=== PATIENT | female | born 1950 | race Caucasian/White ===

== ENCOUNTER → 2017-11-23 | Outpatient (CLI) | payer MEDICARE, OTHER | LOC: RADMRIMAIN 12:41 | PROVIDERS: ATTEND Otolaryngology | DX: H93.3X9 Disorders of unspecified acoustic nerve (principal); H91.90 Unspecified hearing loss, unspecified ear; Z53.9 Procedure and treatment not carried out, unspecified reason ==

== ENCOUNTER → 2018-04-19 | Outpatient (CLI) | payer MEDICARE, OTHER ==
[2018-04-19 13:45] VITALS: BP 185/102; PULSE 75; TEMP 98.2; BMI 26.2
--- NOTE | 2018-04-19 14:35 | P.HPOB ---
History of Present Illness H&P Date: 04/19/18 Chief Complaint: The patient is here for her routine gynecologic exam. This is a 68-year-old with an LMP of 1996 with status post LAVH with BSO for benign reasons. The patient is here to reestablish with this office. It is been more than 4 years since her last appointment here. [place] [facility] [place] was about 11 months ago per the patient. The patient states she is been feeling right breast soreness for about 2 months. And about 2 1/2 weeks ago she noticed a lump in that same area. The lump is felt in the outer upper quadrant of the right breast near the axilla. She states also looks slightly bruised in this area. She states the lump is about the size of the tip of her finger. She has been doing more strenuous activity such as pulling carpets and wonders if her symptoms are related to this activity. She has also been having issues with stress urinary incontinence. She has seen Dr. Rivero, the urologist, for this in the past but has not seen him recently. She has not felt any bulging outside of the vaginal opening. She does have a history of a cystocele. Review of Systems The patient's weight has been stable. She denies respiratory, cardiac and G.I. problems. She denies maltreatment or problems with falling. : she has been having urinary leakage at times with coughing, bending or even standing. See the HPI. 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 She underwent L AVH with BSO for abnormal bleeding. She used HRT for 14 years and this was discontinued in 2008. History of Any Multi-Drug Resistant Organisms: None Reported Past Surgical History: Breast Surgery (Right breast biopsy), Hysterectomy (L AVH with BSO in 1996), Tubal Ligation Additional Past Surgical History / Comment(s): Facial cosmetic surgery. Colonoscopy 2011. Past Psychological History: Anxiety Smoking Status: Never smoker Past Alcohol Use History: Daily (2 per day) Past Drug Use History: None Reported Additional History: The patient has been a since 2011 and is not sexually active. She is retired. - Past Family History Mother Family Medical History: Myocardial Infarction ([place]) Additional Family Medical History / Comment(s): Maternal aunt had breast cancer. Nephew had colon cancer. Father Family Medical History: Cancer (Cancer of the esophagus) Medications and Allergies Home Medications Medication Instructions Recorded Confirmed Type ALPRAZolam [Xanax] PO HS 04/19/18 History Amitriptyline HCl [Elavil] PO TID 04/19/18 History Atenolol [Tenormin] PO DAILY 04/19/18 History Atorvastatin [Lipitor] PO HS 04/19/18 History Calcium Carbonate/Vitamin D3 PO DAILY 04/19/18 History [Calcium 600-Vit D3 200 Tablet] HYDROcodone/APAP 7.5-325MG [[place] PO BID 04/19/18 History 7.5-325] Omeprazole PO HS 04/19/18 History Potassium Chloride [Klor-Con 8] PO BID 04/19/18 History glipiZIDE [Glucotrol] PO DAILY 04/19/18 History metFORMIN HCL [Glucophage] PO DAILY 04/19/18 History Allergies Allergy/AdvReac Type Severity Reaction Status Date / Time Sulfa (Sulfonamide AdvReac Mild Nausea Unverified 04/19/18 13:41 Antibiotics) Exam Vital Signs Temp Pulse BP 04/19/18 13:42 98.2 F 75 185/102 Intake and Output 04/18/18 04/19/18 04/19/18 22:59 06:59 14:59 Other: Weight 69.4 kg Height 5'4", weight 153 pounds, BMI 26.3. This is a well-developed well-nourished white female who is alert and oriented times 3 in no acute distress. HEENT: Within normal limits. NECK: Supple without mass or thyromegaly. CHEST AND LUNGS: Clear to auscultation. HEART: Regular rate and rhythm. BREASTS: there is a slightly erythematous area at the 10 o'clock position of the right breast. This corresponds with the area of soreness and small lump felt by the patient. It is very slightly dimpled in that same area. There is a small lump palpable measuring approximately 0.5 x 1.0 cm. It is minimally tender. The right nipple is not inverted. The left nipple is inverted and she states that has been this way throughout her life. There are no palpable left breast masses. AXILLARY EXAM: Negative for adenopathy. BACK: Negative for CVA tenderness. ABDOMEN: Soft, nontender, without palpable masses. PELVIC EXAM: External genitalia appears normal with mild to moderate atrophy. Vagina appears normal with mild to moderate atrophy. At rest there is no evidence of prolapse. With Valsalva there is a grade 2 cystocele. There is mild urethral mobility was coughing, but no urinary leakage was demonstrated. The vaginal cuff is well supported. Bimanual examination is negative for mass or tenderness. RECTAL EXAM: Rectovaginal exam is negative for mass or tenderness and is negative for occult blood. A grade 1-2 rectocele is noted with rectal exam. EXTREMITIES: Nontender. IMPRESSION: 1. 68-year-old menopausal female status post LAVH and BSO for benign reasons. 2. Small right breast lump and soreness noted by the patient with symptoms starting about 2 months ago. The patient is fairly nodular breast tissue. Differential diagnosis will include prominent normal breast tissue, breast cyst , and less likely breast neoplasm. 3. Stress urinary incontinence with grade 2 cystocele. This cystocele is stable from previous 2014 exam. PLAN: 1. Pap smears have been discontinued. 2. Self breast awareness was discussed with the patient. 3. Diagnostic mammogram with the right breast ultrasound will be done today. Marker was placed in the area of her symptoms. 4. The patient will follow-up with her urologist regarding the stress urinary incontinence. 5. She plans on getting the flu shot in the near future. 6. I recommended that she return in one year and annually for her routine gynecologic exam.
--- NOTE | 2018-04-21 11:00 | MM ---
Reason for exam: clinical finding. Last mammogram was performed 9 months ago. History: Patient is postmenopausal and is nulliparous. Family history of breast cancer in maternal aunt at age 50 and breast cancer in paternal aunt at age 60. Benign stereotactic core biopsy of the right breast. 2 benign excisional biopsies of the right breast. Indicated problem(s): lump or thickening in the right breast. Physical Findings: Nurse Summary: 0.5 x 1cm nodule in the right breast at 10 o'clock (Dr. Reagan). MG 3D Diag Mammo W/Cad ZACH Bilateral CC and MLO view(s) were taken. XCCL view(s) were taken of the right breast. Prior study comparison: July 28, 2017, mammogram, performed at [facility]. May 20, 2016, mammogram, performed at [facility]. The breast tissue is heterogeneously dense. This may lower the sensitivity of mammography. Finding #1: There is a questionable 16 mm obscured oval mass in the inner quadrant, middle position of the left breast on CC slice (31/). Finding #2: There are typically benign vascular, dystrophic, round calcifications in both breasts. Stable distortion right upper outer quadrant, known excisional biopsy. These results were verbally communicated with the patient and result sheet given to the patient on 04/21/18. ASSESSMENT: Incomplete: need additional imaging evaluation, BI-RAD 0 RECOMMENDATION: Ultrasound of the left breast.
--- NOTE | 2018-04-21 11:02 | USB ---
Reason for exam: clinical finding. History: Patient is postmenopausal and is nulliparous. Family history of breast cancer in maternal aunt at age 50 and breast cancer in paternal aunt at age 60. Benign stereotactic core biopsy of the right breast. 2 benign excisional biopsies of the right breast. Indicated problem(s): lump or thickening in the right breast. US Breast RT Right complete breast ultrasound includes all four quadrants, the retroareolar region and axilla. Finding demonstrates dense tissue throughout, nothing seen at BB. These results were verbally communicated with the patient and result sheet given to the patient on 04/21/18. ASSESSMENT: Negative, BI-RAD 1 RECOMMENDATION: Ultrasound. (left breast)
== END | disposition home or self-care (01) ==
LOC: WWCWWP 13:11
PROVIDERS: ATTEND Obstetrics & Gynecology
DX: N64.4 Mastodynia (principal); N63.11 Unspecified lump in the right breast, upper outer quadrant
CPT/HCPCS: 77066; 76641; G0279; 77062

== ENCOUNTER → 2018-04-25 | Outpatient (CLI) | payer MEDICARE, OTHER ==
--- NOTE | 2018-04-25 14:19 | USB ---
Reason for exam: additional evaluation requested from abnormal screening. History: Patient is postmenopausal and is nulliparous. Family history of breast cancer in maternal aunt at age 50 and breast cancer in paternal aunt at age 60. Benign stereotactic core biopsy of the right breast. 2 benign excisional biopsies of the right breast. US Breast Workup LT Left complete breast ultrasound includes all four quadrants, the retroareolar region and axilla. Finding demonstrates no cystic or solid lesion seen. These results were verbally communicated with the patient and result sheet given to the patient on 04/25/18. ASSESSMENT: Negative, BI-RAD 1 RECOMMENDATION: Routine screening mammogram of both breasts in 1 year.
== END | disposition home or self-care (01) ==
LOC: RADUSWWP 10:07
PROVIDERS: ATTEND Obstetrics & Gynecology
DX: R92.8 Other abnormal and inconclusive findings on diagnostic imaging of breast (principal)

== ENCOUNTER → 2019-06-20 | Outpatient (CLI) | payer MEDICARE, OTHER ==
[2019-06-20 10:04] VITALS: BP 183/75; PULSE 69; RESP 18; TEMP 98.3
--- NOTE | 2019-06-20 10:59 | P.HPOB ---
History of Present Illness H&P Date: 06/20/19 Chief Complaint: The patient is here for her routine well woman exam and mnaisha mogram. This is a 69-year-old with an LMP of 1996. She is status post LAVH with BSO for benign reasons. The patient is without gynecologic complaints. She has been undergoing workup for epigastric type pains and has had a abdominal CT scan and upper endoscopy recently. She is refusing a pelvic examination today, but states she will have this done next year. She does want a breast exam. Review of Systems Her weight has been stable over the past year. She denies respiratory or cardiac problems. GI: She has had some difficulty swallowing and has been undergoing a workup for this including upper endoscopy. She denies maltreatment or problems with falling. : She continues to have some urinary leakage with coughing and sneezing. Last month she saw her urologist Dr. Rivero. Past Medical History Past Medical History: Diabetes Mellitus, GERD/Reflux, Hyperlipidemia, Hypertension, Osteoarthritis (OA) Additional Past Medical History / Comment(s): Type 2 diabetes with neuropathy. 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 She underwent LAVH with BSO for abnormal bleeding. She used HRT for 14 years and this was discontinued in 2008. History of Any Multi-Drug Resistant Organisms: None Reported Past Surgical History: Breast Surgery, Hysterectomy, Tubal Ligation Additional Past Surgical History / Comment(s): LAVH with BSO in 1996. Facial cosmetic surgery. Cystoscopy 2019. Colonoscopy with upper endoscopy 2019(next colonoscpy 5yrs) Past Psychological History: Anxiety Smoking Status: Never smoker Past Alcohol Use History: Daily (2 per Day) Past Drug Use History: None Reported Additional History: The patient has been a since 2011 and is not sexually active. She is retired. - Past Family History Mother Family Medical History: Myocardial Infarction ([place]) Additional Family Medical History / Comment(s): Maternal aunt had breast cancer. Nephew had colon cancer. Father Family Medical History: Cancer Additional Family Medical History / Comment(s): Cancer of the esophagus. Medications and Allergies Home Medications Medication Instructions Recorded Confirmed Type ALPRAZolam [Xanax] 0.25 mg PO HS 04/19/18 04/19/18 History Amitriptyline HCl [Elavil] 25 mg PO TID 04/19/18 04/19/18 History Atenolol [Tenormin] 50 mg PO DAILY 04/19/18 04/19/18 History Atorvastatin [Lipitor] 40 mg PO HS 04/19/18 04/19/18 History Calcium Carbonate/Vitamin D3 600 mg PO DAILY 04/19/18 04/19/18 History [Calcium 600-Vit D3 200 Tablet] Cranberry Fruit Concentrate 450 mg PO DAILY 04/19/18 04/19/18 History [Cranberry] Ginkgo Biloba [place] Extract [Ginkgo] 120 mg PO DAILY 04/19/18 04/19/18 History Omega3/Dha/Epa/Fish Oil/Vit D3 1,200 mg PO DAILY 04/19/18 04/19/18 History [Fish Oil-Vit D3 Softgel] Omeprazole 40 mg PO HS 04/19/18 04/19/18 History glipiZIDE [Glucotrol] 10 mg PO DAILY 04/19/18 04/19/18 History metFORMIN HCL [Glucophage] 500 mg PO DAILY 04/19/18 04/19/18 History Cognium 1 tablet PO DAILY 06/20/19 06/20/19 History Cyanocobalamin (Vitamin B-12) 5,000 mcg PO DAILY 06/20/19 06/20/19 History [Vitamin B-12] Multivit-Min/FA/Lycopen/Lutein 1 each PO DAILY 06/20/19 06/20/19 History [Centrum Silver Tablet] Nasal [place] 3 sprays EA NOSTRIL TID 06/20/19 06/20/19 History Allergies Allergy/AdvReac Type Severity Reaction Status Date / Time Sulfa (Sulfonamide AdvReac Mild Nausea Unverified 06/20/19 10:04 Antibiotics) amoxicillin AdvReac Rash/Hives Unverified 06/20/19 10:04 Exam Vital Signs Temp Pulse Resp BP Pulse Ox 06/20/19 09:57 98.3 F 69 18 183/75 96 Intake and Output 06/19/19 06/20/19 06/20/19 22:59 06:59 14:59 Other: Weight 68.946 kg Height 5 feet 4 inches, weight 152 pounds, BMI 26.1. This is a well-developed well-nourished white female who is alert and oriented times 3 in no acute distress. HEENT: Within normal limits. NECK: Supple without mass or thyromegaly. CHEST AND LUNGS: Clear to auscultation. HEART: Regular rate and rhythm. BREASTS: Are without mass or discharge. The left breast has an inverted nipple and she states it is been this way for many years. The right nipple is not inverted. There is a slight indentation at the 9 o'clock position of the right breast consistent with her previous breast biopsy. AXILLARY EXAM: Negative for adenopathy. BACK: Negative for CVA tenderness. ABDOMEN: Soft, nontender, without palpable masses. PELVIC EXAM: Refused by the patient. RECTAL EXAM: Refused by the patient. EXTREMITIES: Nontender. IMPRESSION: 1. 69-year-old menopausal female status post LAVH with BSO with normal breast exam. Pelvic examination was refused by the patient. She states she will do this next year. 2. History of grade 2 cystocele. Pelvic exam refused by the patient today, therefore unable to assess changes in the cystocele. PLAN: 1. Pap smears have been discontinued. 2. Self breast awareness was discussed with the patient. 3. Screening mammogram will be done today. 4. Osteoporosis prevention was discussed. I have stressed the importance of adequate calcium, vitamin D and regular exercise. Recommended amounts of calcium and vitamin D were also discussed. She states it has been more than 5 years since her last bone density test which she states was normal. I have recommended repeating bone density testing. She states she would like to do this next year when she returns. She did get a flu shot during the past fall. 5. She was advised to return in one year for her annual well woman exam.
--- NOTE | 2019-06-21 14:10 | MM ---
Reason for exam: screening (asymptomatic). Last mammogram was performed 1 year and 2 months ago. History: Patient is postmenopausal and is nulliparous. Family history of breast cancer in maternal aunt at age 50 and breast cancer in paternal aunt at age 60. Benign stereotactic core biopsy of the right breast. 2 benign excisional biopsies of the right breast. Physical Findings: A clinical breast exam by your physician is recommended on an annual basis and results should be correlated with mammographic findings. MG 3D Screening Mammo W/Cad Bilateral CC and MLO view(s) were taken. Prior study comparison: April 19, 2018, bilateral MG 3d diag mammo w/cad ZACH. July 28, 2017, mammogram, performed at [facility]. The breast tissue is heterogeneously dense. This may lower the sensitivity of mammography. Stable post surgical scar lateral right breast. Area of asymmetric density medially left breast stable to slightly more pronounced from 04/19/18 and not clearly seen on older priors. ASSESSMENT: Incomplete: need additional imaging evaluation, BI-RAD 0 RECOMMENDATION: Special view mammogram of the left breast. If lesion persists on supplemental views, image directed ultrasound is recommended. [facility] will attempt to contact patient to return for supplemental views and ultrasound if indicated.
== END | disposition home or self-care (01) ==
LOC: WWCWWP 09:47
PROVIDERS: ATTEND Obstetrics & Gynecology
DX: Z12.31 Encounter for screening mammogram for malignant neoplasm of breast (principal)
CPT/HCPCS: 77063; 77067

== ENCOUNTER → 2019-07-04 | Outpatient (CLI) | payer MEDICARE, OTHER ==
--- NOTE | 2019-07-04 11:07 | MM ---
Reason for exam: additional evaluation requested from abnormal screening. Last mammogram was performed less than 1 month ago. History: Patient is postmenopausal and is nulliparous. Family history of breast cancer in maternal aunt at age 50 and breast cancer in paternal aunt at age 60. Benign stereotactic core biopsy of the right breast. 2 benign excisional biopsies of the right breast. Took estrogen for 10 years beginning at age 46. Physical Findings: Nurse did not find any significant physical abnormalities on exam. MG 3D Work Up W/Cad LT Spot compression CC, spot compression MLO, and ML view(s) were taken of the left breast. Prior study comparison: June 20, 2019, bilateral MG 3d screening mammo w/cad. April 19, 2018, bilateral MG 3d diag mammo w/cad ZACH. The breast tissue is heterogeneously dense. This may lower the sensitivity of mammography. There is no discrete abnormality. No distinct new lesion. These results were verbally communicated with the patient and result sheet given to the patient on 07/04/19. ASSESSMENT: Negative, BI-RAD 1 RECOMMENDATION: Return to routine screening mammogram schedule for both breasts.
== END ==
LOC: RADMAMWWP 10:00
PROVIDERS: ATTEND Obstetrics & Gynecology
DX: R92.8 Other abnormal and inconclusive findings on diagnostic imaging of breast (principal)
CPT/HCPCS: 77065; G0279; 77061

== ENCOUNTER → 2020-07-23 | Outpatient (CLI) | payer MEDICARE, OTHER ==
[2020-07-23 11:44] VITALS: BP 165/83; PULSE 69; RESP 18; TEMP 98.3
--- NOTE | 2020-07-23 12:26 | P.HPOB ---
History of Present Illness H&P Date: 07/23/20 Chief Complaint: The patient is here for her routine gynecologic exam. This is a 70-year-old with an LMP of 1996. She is status post LAVH with BSO for benign reasons. The patient is without gynecologic complaints. She has not noticed any prolapse from the vagina. Review of Systems She is gained 2 pounds over the past year. She denies respiratory or cardiac problems. GI: Occasional loose stools with certain foods. She denies maltreatm ent or problems with falling. : Occasional urinary leakage if she does not get to the bathroom in time that requires her to wear a pad. Past Medical History Past Medical History: Diabetes Mellitus, GERD/Reflux, Hyperlipidemia, Hypertension, Osteoarthritis (OA) Additional Past Medical History / Comment(s): Type 2 diabetes with neuropathy. 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 She has a known grade 2 cystocele and grade 1-2 rectocele. She used HRT for 14 years and this was discontinued in 2008. History of Any Multi-Drug Resistant Organisms: None Reported Past Surgical History: Breast Surgery, Hysterectomy, Tubal Ligation Additional Past Surgical History / Comment(s): LAVH with BSO in 1996. Facial cosmetic surgery. Cystoscopy 2018. Colonoscopy with upper endoscopy 2020(next colonoscpy 5yrs) Past Psychological History: Anxiety Smoking Status: Former smoker Past Alcohol Use History: Daily (2 glasses of wine per day) Past Drug Use History: None Reported Additional History: The patient has been a since 2011 and is not sexually active. She is retired. - Past Family History Mother Family Medical History: Myocardial Infarction ([place]) Additional Family Medical History / Comment(s): Maternal aunt had breast cancer. Nephew had colon cancer. Father Family Medical History: Cancer Additional Family Medical History / Comment(s): Cancer of the esophagus. Medications and Allergies Home Medications Medication Instructions Recorded Confirmed Type ALPRAZolam [Xanax] 0.25 mg PO HS 04/19/18 07/23/20 History Amitriptyline HCl [Elavil] 25 mg PO TID 04/19/18 07/23/20 History Atorvastatin [Lipitor] 40 mg PO HS 04/19/18 07/23/20 History Calcium Carbonate/Vitamin D3 600 mg PO DAILY 04/19/18 07/23/20 History [Calcium 600-Vit D3 200 Tablet] Cranberry Fruit Concentrate 450 mg PO DAILY 04/19/18 07/23/20 History [Cranberry] Ginkgo Biloba [place] Extract [Ginkgo] 120 mg PO DAILY 04/19/18 07/23/20 History Omega3/Dha/Epa/Fish Oil/Vit D3 1,200 mg PO DAILY 04/19/18 07/23/20 History [Fish Oil-Vit D3 Softgel] Omeprazole 40 mg PO HS 04/19/18 07/23/20 History atenoloL [Tenormin] 100 mg PO DAILY 04/19/18 07/23/20 History glipiZIDE [Glucotrol] 2.5 mg PO DAILY 04/19/18 07/23/20 History metFORMIN HCL [Glucophage] 500 mg PO BID 04/19/18 07/23/20 History Cognium 1 tablet PO DAILY 06/20/19 07/23/20 History Cyanocobalamin (Vitamin B-12) 5,000 mcg PO DAILY 06/20/19 07/23/20 History [Vitamin B-12] Multivit-Min/FA/Lycopen/Lutein 1 each PO DAILY 06/20/19 07/23/20 History [Centrum Silver Tablet] Nasal [place] 3 sprays EA NOSTRIL TID 06/20/19 07/23/20 History Aspirin 81 mg PO DAILY 07/23/20 07/23/20 History Allergies Allergy/AdvReac Type Severity Reaction Status Date / Time Sulfa (Sulfonamide AdvReac Mild Nausea Unverified 07/23/20 11:37 Antibiotics) amoxicillin AdvReac Rash/Hives Unverified 07/23/20 11:37 Exam Vital Signs Temp Pulse Resp BP Pulse Ox 07/23/20 11:38 98.3 F 69 18 165/83 97 Intake and Output 07/22/20 07/23/20 07/23/20 22:59 06:59 14:59 Other: Weight 69.853 kg Height 5 feet 3 inches, weight 154 pounds, BMI 27.3. This is a well-developed well-nourished white female who is alert and oriented times 3 in no acute distress. HEENT: Within normal limits. NECK: Supple without mass or thyromegaly. CHEST AND LUNGS: Clear to auscultation. HEART: Regular rate and rhythm. BREASTS: Are without mass or discharge. The left nipple is inverted and has been this way for many years according to the patient. AXILLARY EXAM: Negative for adenopathy. BACK: Negative for CVA tenderness. ABDOMEN: Soft, nontender, without palpable masses. PELVIC EXAM: External genitalia appears normal with mild to moderate atrophy. Vagina appears normal with mild to moderate atrophy. There is a stable grade 2 cystocele and grade 1 rectocele. The vaginal cuff is well supported. Bimanual examination is negative for mass or tenderness. RECTAL EXAM: Rectovaginal exam is negative for mass or tenderness and is negative for occult blood. EXTREMITIES: Nontender. IMPRESSION: 1. 70-year-old menopausal female status post LAVH with BSO for benign reasons with stable grade 2 cystocele and grade 1 rectocele. PLAN: 1. Pap smears have been discontinued. 2. Self breast awareness was discussed with the patient. 3. Screening mammogram is scheduled for 09/17/2020 and the order slip was given to the patient for this. 4. Osteoporosis prevention was discussed. I have stressed the importance of adequate calcium, vitamin D and regular exercise. Recommended amounts of calcium and vitamin D were also discussed. Bone density testing will be done today. 5. She did get a flu shot last fall and has received the first of 2 COVID vaccinations. 6. She was advised to return in one year for her annual well woman exam.
--- NOTE | 2020-07-23 13:41 | BD ---
EXAMINATION TYPE: Axial Bone Density DATE OF EXAM: 07/23/2020 COMPARISON: NONE CLINICAL HISTORY: Height: 5 FT 3 IN Weight: 154 FRAX RISK QUESTIONS: Alcohol (3 or more units per day): NO Family History (Parent hip fracture): NO Glucocorticoids (More than 3mos): NO (Ex: prednisone, prednisolone, methylprednisolone, dexamethasone, and hydrocortisone). History of Fracture in Adulthood: NO Secondary Osteoporosis: NO 1. Type 1 Diabetes: NO 2. Hyperthyroidism: NO 3. Menopause before 45: NO 4. Malnutrition: NO 5. Chronic liver disease: NO Rheumatoid Arthritis: NO Current Tobacco Use: NO RISK FACTORS HISTORY OF: Family History of Osteoporosis: YES Active: NO Diet low in dairy products/other sources of calcium: NO Postmenopausal woman: HYST AGE 46 Take estrogen and/or progesterone medications: TOOK HRT FROM AGE [age] Lost more than 2 inches in height since high school: NO MEDICATIONS: Additional Medications: ATENOLOL, LIPITOR, ELAVIL, OMEPRAZOLE, XANAX, METFORMIN, GLIPIZIDE, Additional History: EXAM MEASUREMENTS: Bone mineral densitometry was performed using the [employer]. Bone mineral density as measured about the Lumbar spine is: ----- L1-L4(G/cm2): 1.587 T Score Values are as follows: ----- L2: 3.2 ----- L3: 4.1 ----- L4: 3.2 ----- L1-L4: 3.4 BASELINE Bone mineral density about the R hip (g/cm2): 1.062 Bone mineral density about the L hip (g/cm2): 1.101 T Score values are as follows: -----R Neck: 0.2 -----L Neck: 0.5 -----R Total: 1.0 -----L Total: 1.2 BASELINE IMPRESSION: Normal (Values between +1 and -1 indicate normal bone mass). Consider repeating this study in 5 year s or sooner if there is some new clinical indication. NOTE: T-SCORE=SD OF THE YOUNG ADULT MEAN.
--- NOTE | 2020-07-23 14:30 | P.PN ---
Progress Note - Text Progress Note Date: 07/23/20 OUTPATIENT FOLLOW-UP NOTE TEST(S)/RESULTS: Bone density test done on 07/23/2020 was normal. METHOD OF NOTIFICATION: She was notified by phone. PATIENT COMMENTS: Her last bone density test was done at [facility] more than 5 years ago. DIAGNOSIS: Normal bone density test. DISCUSSION: She will continue to try to get enough calcium, vitamin D and regular exercise. PLAN: She was advised to return in one year for her annual well woman exam. We will repeat the bone density test in approximately 6 years.
== END | disposition home or self-care (01) ==
LOC: WWCWWP 11:17
PROVIDERS: ATTEND Obstetrics & Gynecology
DX: Z78.0 Asymptomatic menopausal state (principal)
CPT/HCPCS: 77080

== ENCOUNTER → 2021-10-29 | Outpatient (CLI) | payer MEDICARE, OTHER ==
[2021-10-29 10:48] VITALS: PULSE 76; RESP 17; TEMP 98.7
--- NOTE | 2021-10-29 12:04 | P.HPOB ---
History of Present Illness H&P Date: 10/29/21 Chief Complaint: The patient is here for her routine gynecologic exam. This is a 71-year-old with an LMP of 1996. The patient is status post LAVH and BSO for benign reasons. The patient has been experiencing worsening urinary incontinence especially with coughing and sneezing. She even notices leakage when changing positions. The leakage tends to be immediate and without urinary urgency. She has a known cystocele and small rectocele. She recently had a screening mammogram on 10/23/2021 which was benign. This was done at [facility]. She had mentioned to the mammogram tech that she has noticed a lump in the right axilla. Even though the mammogram was benign, a right axillary ultrasound was recommended. They called the patient and said they would be calling her back to schedule the ultrasound. Review of Systems Weight has been stable. She denies respiratory or cardiac problems. GI: She occasionally has some difficulty swallowing he has had a workup for this including upper GI. She was told she may have a hiatal hernia. Past Medical History Past Medical History: Cancer, Diabetes Mellitus, GERD/Reflux, Hyperlipidemia, Hypertension, Osteoarthritis (OA) Additional Past Medical History / Comment(s): Type 2 diabetes with neuropathy. Basal cell skin cancer on her nose. 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 She has a known grade 2 cystocele and grade 1-2 rectocele. She used HRT for 14 years and this was discontinued in 2008. History of Any Multi-Drug Resistant Organisms: None Reported Past Surgical History: Breast Surgery, Hysterectomy, Tubal Ligation Additional Past Surgical History / Comment(s): LAVH with BSO in 1996. Facial cosmetic surgery. Basal cell skin cancer removed 2021. Cystoscopy 2018. Colonoscopy with upper endoscopy 2020(next colonoscpy 5yrs) Past Psychological History: Anxiety Smoking Status: Former smoker Past Alcohol Use History: Daily (2 glasses of wine per day.) Past Drug Use History: None Reported Additional History: She has been a since 2011 and is not sexually active. She is retired. - Past Family History Mother Family Medical History: Myocardial Infarction (VT) Additional Family Medical History / Comment(s): Maternal aunt had breast cancer. Nephew had colon cancer. Father Family Medical History: Cancer Additional Family Medical History / Comment(s): Cancer of the esophagus. Sister(s) Family Medical History: Osteoarthritis (OA) Medications and Allergies Home Medications Medication Instructions Recorded Confirmed Type ALPRAZolam [Xanax] 0.25 mg PO HS 04/19/18 10/29/21 History Amitriptyline HCl [Elavil] 25 mg PO TID 04/19/18 10/29/21 History Atorvastatin [Lipitor] 40 mg PO HS 04/19/18 10/29/21 History Calcium Carbonate/Vitamin D3 600 mg PO DAILY 04/19/18 10/29/21 History [Calcium 600-Vit D3 200 Tablet] Cranberry Fruit Concentrate 450 mg PO DAILY 04/19/18 10/29/21 History [Cranberry] Omega3/Dha/Epa/Fish Oil/Vit D3 1,200 mg PO DAILY 04/19/18 10/29/21 History [Fish Oil-Vit D3 Softgel] Omeprazole 40 mg PO HS 04/19/18 10/29/21 History atenoloL [Tenormin] 100 mg PO DAILY 04/19/18 10/29/21 History glipiZIDE [Glucotrol] 2.5 mg PO DAILY 04/19/18 10/29/21 History metFORMIN HCL [Glucophage] 500 mg PO BID 04/19/18 10/29/21 History Cognium 1 tablet PO DAILY 06/20/19 10/29/21 History Cyanocobalamin (Vitamin B-12) 5,000 mcg PO DAILY 06/20/19 10/29/21 History [Vitamin B-12] Multivit-Min/FA/Lycopen/Lutein 1 each PO DAILY 06/20/19 10/29/21 History [Centrum Silver Tablet] Nasal [place] 3 sprays EA NOSTRIL TID 06/20/19 10/29/21 History Aspirin 81 mg PO DAILY 07/23/20 10/29/21 History Biotin [Biotin Disolve] 5,000 mcg PO DAILY 10/29/21 10/29/21 History Vitamin E 400 unit PO DAILY 10/29/21 10/29/21 History Allergies Allergy/AdvReac Type Severity Reaction Status Date / Time Sulfa (Sulfonamide AdvReac Mild Nausea Unverified 10/29/21 10:43 Antibiotics) amoxicillin AdvReac Rash/Hives Unverified 10/29/21 10:43 Exam Vital Signs Temp Pulse Resp Pulse Ox 10/29/21 10:43 98.7 F 76 17 96 Intake and Output 10/28/21 10/29/21 10/29/21 22:59 06:59 14:59 Other: Weight 69.853 kg Height 5 feet 4 inches, weight 154 pounds, BMI 26.4. This is a well-developed well-nourished white female who is alert and oriented times 3 in no acute distress. HEENT: Within normal limits. NECK: Supple without mass or thyromegaly. CHEST AND LUNGS: Clear to auscultation. HEART: Regular rate and rhythm. BREASTS: Are without mass or discharge. The left nipple is inverted and this is not a jacket changer many years. AXILLARY EXAM: There is a slight bulge in the right axilla just posterior to the mid axillary line. There is a palpable 2 x 1.3 cm soft tissue mass consistent with a lipoma. BACK: Negative for CVA tenderness. ABDOMEN: Soft, nontender, without palpable masses. PELVIC EXAM: External genitalia appears normal with moderate atrophy. Urinary leakage occurred upon having the patient sit up and move on the table. Vagina appears normal with mild to moderate atrophy. There is a stable grade 2 cystocele and grade 1 rectocele. The cystocele increases slightly in size with cough and Valsalva. There seems to be mild urethral mobility. Bimanual examination is negative for mass or tenderness. RECTAL EXAM: Rectovaginal exam is negative for mass or tenderness and is negative for occult blood. Vaginal muscle and sphincter tone seem decreased. EXTREMITIES: Nontender. IMPRESSION: 1. 71-year-old menopausal female status post LAVH with BSO for benign reasons with grade 2 cystocele and worsening stress urinary incontinence. 2. Right axillary soft tissue mass measuring impression a 2 x 1.3 cm. Probable lipoma. PLAN: 1. Pap smears have been discontinued. 2. Self breast awareness was discussed with the patient. We have also discussed symptoms associated with inflammatory breast cancer. 3. Screening mammogram was done on 10/23/2021 and this was benign. Right axillary ultrasound was recommended because of the axillary finding. The patient will schedule this with the [facility]. 4. We've discussed the option of referral for her urinary incontinence. She would like to have a referral to Dr. Narvaez, the gynecologic urologist working out of hospital. This referral will be made. 5. She has completed her Covid vaccination series. 6. She was advised to return in one year for her annual well woman exam.
== END ==
LOC: WWCWWP 10:23
PROVIDERS: ATTEND Obstetrics & Gynecology
DX: Z01.419 Encounter for gynecological examination (general) (routine) without abnormal findings (principal); N81.10 Cystocele, unspecified; N39.3 Stress incontinence (female) (male); R22.2 Localized swelling, mass and lump, trunk; E11.40 Type 2 diabetes mellitus with diabetic neuropathy, unspecified; E78.5 Hyperlipidemia, unspecified; I10 Essential (primary) hypertension; Z78.0 Asymptomatic menopausal state; M19.90 Unspecified osteoarthritis, unspecified site; F41.9 Anxiety disorder, unspecified; Z87.891 Personal history of nicotine dependence; Z79.84 Long term (current) use of oral hypoglycemic drugs; Z88.0 Allergy status to penicillin; Z88.2 Allergy status to sulfonamides; Z90.722 Acquired absence of ovaries, bilateral

== ENCOUNTER 2022-10-29 22:15 | Inpatient (IN) | payer MEDICARE, OTHER ==
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
[2022-10-30 00:45] LABS: Basophils % (A) 1 %; Eosinophils # (A) 0.2 k/uL (0-0.7); Eosinophils % (A) 5 %; HCT 40.2 % (34.0-46.0); HGB 13.6 gm/dL (11.4-16.0); Lymphocytes % (A) 25 %; MCH 32.9 pg (25.0-35.0); MCHC 33.9 g/dL (31.0-37.0); Mean Platelet Volume 7.4; Monocytes # (A) 0.2 k/uL (0-1.0); Monocytes % (A) 6 %; Neutrophils # (A) 2.3 k/uL (1.3-7.7); Neutrophils % (A) 60 %; Platelet Count 165 k/uL (150-450); RBC 4.15 m/uL (3.80-5.40); RDW 12.1 % (11.5-15.5); WBC 3.8 k/uL (3.8-10.6)
[2022-10-30 00:52] LABS: ALT 34 U/L (4-34); AST 40 U/L (14-36); African American GFR (CKD) >90 (>60 ml/min/1.73 sqM); Albumin 4.1 g/dL (3.5-5.0); Alkaline Phosphatase 60 U/L (38-126); Anion Gap 17 mmol/L; Blood Urea Nitrogen 7 mg/dL (7-17); Calcium 8.2 mg/dL (8.4-10.2); Carbon Dioxide 22 mmol/L (22-30); Chloride 100 mmol/L (98-107); Glucose 57 mg/dL (74-99); Non-African American GFR(CKD) >90 (>60 ml/min/1.73 sqM); Potassium 3.7 mmol/L (3.5-5.1); Sodium 139 mmol/L (137-145); Total Bilirubin 0.6 mg/dL (0.2-1.3); Total Protein 6.8 g/dL (6.3-8.2)
[2022-10-30 01:01] LABS: Partial Thromboplastin Time 25.2 sec (22.0-30.0); Prothrombin Time 10.4 sec (9.0-12.0)
--- NOTE | 2022-10-30 02:34 | XR ---
EXAM: XR Chest, 2 Views CLINICAL HISTORY: Its. reason XR Reason: difficulty breathing TECHNIQUE: Frontal and lateral views of the chest. COMPARISON: No relevant prior studies available. FINDINGS: Lungs: Right middle lobe pneumonia. Pleural space: Unremarkable. No pneumothorax. Heart: Unremarkable. No cardiomegaly. Mediastinum: Unremarkable. Bones/joints: Unremarkable. IMPRESSION: As above
[2022-10-30] MEDS ORDERED: IPRATROPIUM-ALBUTEROL 3 ML NEB INHALATION STA (02:48)
[2022-10-30] MEDS ORDERED: PNEUMONIA PROTOCOL UTILIZED 1 EACH MISC PO PRN (02:59)
[2022-10-30] MEDS ORDERED: AZITHROMYCIN 500 MG in SODIUM CHLORIDE 0.9% 250 ML IVPB STA (02:59)
[2022-10-30 03:11] LABS: Glucose,Whole Blood 64 mg/dL (70-110)
[2022-10-30] MEDS: IPRATROPIUM-ALBUTEROL 3 ML NEB INHALATION SCH ×6 (03:59→23:27)
[2022-10-30] MEDS: SODIUM CHLORIDE 0.9% 1,000 ML IV SCH ×3 (03:59→20:27)
[2022-10-30 04:00] LABS: Glucose,Whole Blood 96 mg/dL (70-110)
[2022-10-30] MEDS ORDERED: ALPRAZolam 0.25 MG TAB PO PRN (11:44)
[2022-10-30] MEDS ORDERED: AZITHROMYCIN 500 MG TAB PO SCH (13:15)
--- NOTE | 2022-10-30 13:15 | P.HPIM ---
History of Present Illness 72-year-old female came in with comments of shortness of breath cough which is nonproductive. Patient had a chest x-ray which was read as a right middle lobe pneumonia although this infiltrate was not clearly evident for me on the x-ray. has significant bilateral rhonchi. Patient denied any history of COPD but does have some emphysematous changes on the x-ray did do have smoking history, presently not a smoker. Patient was given Rocephin and azithromycin. REVIEW OF SYSTEMS: CONSTITUTIONAL: No fever, no malaise, no fatigue. HEENT: No recent visual problems or hearing problems. Denied any sore throat. CARDIOVASCULAR: No chest pain, orthopnea, PND, no palpitations, no syncope. PULMONARY: As mentioned in HPI GASTROINTESTINAL: No diarrhea, no nausea, no vomiting, no abdominal pain. NEUROLOGICAL: No headaches, no weakness, no numbness. HEMATOLOGICAL: Denies any bleeding or petechiae. GENITOURINARY: Denies any burning micturition, frequency, or urgency. MUSCULOSKELETAL/RHEUMATOLOGICAL: Denies any joint pain, swelling, or any muscle pain. ENDOCRINE: Denies any polyuria or polydipsia. The rest of the 14-point review of systems is negative. PHYSICAL EXAMINATION: GENERAL: The patient is alert and oriented x3, not in any acute distress. Well developed, well nourished. HEENT: Pupils are round and equally reacting to light. EOMI. No scleral icterus. No conjunctival pallor. Normocephalic, atraumatic. No pharyngeal erythema. No thyromegaly. CARDIOVASCULAR: S1 and S2 present. No murmurs, rubs, or gallops. PULMONARY: Significant bilateral rhonchi with mild expiratory wheezing ABDOMEN: Soft, nontender, nondistended, normoactive bowel sounds. No palpable organomegaly. MUSCULOSKELETAL: No joint swelling or deformity. EXTREMITIES: No cyanosis, clubbing, or pedal edema. NEUROLOGICAL: Gross neurological examination did not reveal any focal deficits. SKIN: No rashes. Assessment and plan -Acute hypoxic respiratory failure: Most probably severe bronchitis and there may be a possibility of right middle lobe pneumonia as well., Will obtain progastrin level can you with Rocephin and azithromycin. Patient will be started on systemic steroids for possible COPD exacerbation - COPD with acute exacerbation -Type 2 diabetes mellitus patient is on glipizide and metformin and glipizide will be continued patient will be also be on sliding scale insulin blood sugars are expected to go up -Gastritis with reflux disease -Hypertension Hyperlipidemia -diabetic peripheral neuropathy DVT prophylaxis: Lovenox GI prophylaxis Protonix Past Medical History Past Medical History: Cancer, Diabetes Mellitus, GERD/Reflux, Hyperlipidemia, Hypertension, Osteoarthritis (OA) Additional Past Medical History / Comment(s): Type 2 diabetes with neuropathy. Basal cell skin cancer on her nose. 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 She has a known grade 2 cystocele and grade 1-2 rectocele. She used HRT for 14 years and this was discontinued in 2008. History of Any Multi-Drug Resistant Organisms: None Reported Past Surgical History: Breast Surgery, Hysterectomy, Tubal Ligation Additional Past Surgical History / Comment(s): LAVH with BSO in 1996. Facial cosmetic surgery. Basal cell skin cancer removed 2021. Cystoscopy 2018. Colonoscopy with upper endoscopy 2020(next colonoscpy 5yrs) Past Psychological History: Anxiety Smoking Status: Former smoker Past Alcohol Use History: Daily Past Drug Use History: None Reported - Past Family History Mother Family Medical History: Myocardial Infarction (MD) Additional Family Medical History / Comment(s): Maternal aunt had breast cancer. Nephew had colon cancer. Father Family Medical History: Cancer Additional Family Medical History / Comment(s): Cancer of the esophagus. Sister(s) Family Medical History: Osteoarthritis (OA) Medications and Allergies Home Medications Medication Instructions Recorded Confirmed Type ALPRAZolam [Xanax] 0.25 mg PO DAILY PRN 04/19/18 10/30/22 History Amitriptyline HCl [Elavil] 25 mg PO BID@0900,219904/19/18 10/30/22 History Atorvastatin [Lipitor] 40 mg PO HS@219904/19/18 10/30/22 History Cranberry Fruit Concentrate 4,500 mg PO DAILY@0900 04/19/18 10/30/22 History [Cranberry] Omega3/Dha/Epa/Fish Oil/Vit D3 1 cap PO HS@219904/19/18 10/30/22 History [Fish Oil-Vit D3 Softgel] Omeprazole 40 mg PO HS@219904/19/18 10/30/22 History atenoloL [Tenormin] 100 mg PO DAILY@0900 04/19/18 10/30/22 History metFORMIN HCL [Glucophage] 500 mg PO BID@0900,2200 04/19/18 10/30/22 History Cognium 1 tablet PO BID@0900,2200 06/20/19 10/30/22 History Cyanocobalamin (Vitamin B-12) 5,000 mcg PO DAILY@0900 06/20/19 10/30/22 History [Vitamin B-12] Multivit-Min/FA/Lycopen/Lutein 1 tab PO DAILY@0900 06/20/19 10/30/22 History [Centrum Silver Tablet] Nasal [place] 1 - 3 sprays EA NOSTRIL TID PRN 06/20/19 10/30/22 History Aspirin 81 mg PO DAILY@0900 07/23/20 10/30/22 History Biotin [Biotin Disolve] 5,000 mcg PO DAILY@1000 10/29/21 10/30/22 History Vitamin E 400 unit PO DAILY@1000 10/29/21 10/30/22 History Ascorbic Acid [Vitamin C] 500 mg PO DAILY@1000 10/30/22 10/30/22 History Atorvastatin [Lipitor] 20 mg PO HS@219910/30/22 10/30/22 History Cholecalciferol [Vitamin D3 (25 50 mcg PO DAILY@1000 10/30/22 10/30/22 History Mcg = 1000 Iu)] glipiZIDE XL [Glucotrol Xl] 5 mg PO DAILY@1000 10/30/22 10/30/22 History Allergies Allergy/AdvReac Type Severity Reaction Status Date / Time Sulfa (Sulfonamide Allergy Mild Unknown Verified 10/30/22 08:06 Antibiotics) Childhood amoxicillin Allergy Rash/Hives Verified 10/30/22 08:06 Physical Exam Vitals: Vital Signs Temp Pulse Pulse Resp BP BP Pulse Ox 10/30/22 13:02 98.5 F 85 16 192/92 97 10/30/22 08:52 88 18 10/30/22 08:43 85 18 97 10/30/22 04:00 80 16 149/76 99 10/30/22 03:25 85 10/30/22 03:17 82 10/29/22 23:08 98.0 F 80 20 118/60 90 L Intake and Output 10/29/22 10/30/22 10/30/22 22:59 06:59 14:59 Other: Weight 72.121 kg Results CBC & Chem 7: 10/30/22 00:21 10/30/22 00:21 Labs: Abnormal Lab Results - Last 24 Hours (Table) 10/30/22 10/30/22 10/30/22 Range/Units 00:21 00:21 03:10 Creatinine 0.35 L (0.52-1.04) mg/dL Glucose 57 L (74-99) mg/dL POC Glucose (mg/dL) 64 L (70-110) mg/dL Plasma Lactic Acid Edilson 3.3 H* (0.7-2.0) mmol/L Calcium 8.2 L (8.4-10.2) mg/dL AST 40 H (14-36) U/L 10/30/22 10/30/22 Range/Units 03:20 07:20 Creatinine (0.52-1.04) mg/dL Glucose (74-99) mg/dL POC Glucose (mg/dL) (70-110) mg/dL Plasma Lactic Acid Edilson 3.1 H* 2.2 H* (0.7-2.0) mmol/L Calcium (8.4-10.2) mg/dL AST (14-36) U/L
[2022-10-30] MEDS: predniSONE 20 MG TAB PO SCH (14:18)
[2022-10-30] MEDS: PANTOPRAZOLE 40 MG TABLET PO SCH (14:18)
[2022-10-30] MEDS: atenoloL 50 MG TAB PO SCH (14:19)
[2022-10-30 14:44] LABS: Glucose,Whole Blood 194 mg/dL (70-110)
[2022-10-30] MEDS: INSULIN ASPART (NovoLOG) 100 UNIT/ML VIAL SQ SCH ×3 (16:23→22:45)
[2022-10-30 17:39] LABS: Glucose,Whole Blood 241 mg/dL (70-110)
[2022-10-30] MEDS: AMITRIPTYLINE HCL 25 MG TAB PO SCH (20:27)
[2022-10-30] MEDS ORDERED: ATORVASTATIN 40 MG TAB PO SCH (22:00)
[2022-10-30 22:33] LABS: Glucose,Whole Blood 260 mg/dL (70-110)
[2022-10-31] MEDS: AZITHROMYCIN 500 MG TAB PO SCH (03:52)
[2022-10-31] MEDS: IPRATROPIUM-ALBUTEROL 3 ML NEB INHALATION SCH ×5 (04:12→19:50)
[2022-10-31 06:23] LABS: Glucose,Whole Blood 163 mg/dL (70-110)
[2022-10-31] MEDS: INSULIN ASPART (NovoLOG) 100 UNIT/ML VIAL SQ SCH ×4 (06:29→22:05)
[2022-10-31] MEDS: PANTOPRAZOLE 40 MG TABLET PO SCH ×2 (06:29→20:59)
--- NOTE | 2022-10-31 07:42 | XR ---
EXAMINATION TYPE: XR chest 2V DATE OF EXAM: 10/31/2022 COMPARISON: Chest x-ray one day earlier. HISTORY: Pneumonia. TECHNIQUE: Frontal and lateral views of the chest are obtained. FINDINGS: Faint increased opacities in the lower lungs redemonstrated. The cardiac silhouette size is stable and within normal limits. The osseous structures are intact. IMPRESSION: Patchy bibasilar acute infiltrates and/or atelectasis remain present. No significant bry nge from one day earlier.
[2022-10-31] MEDS: atenoloL 50 MG TAB PO SCH (07:50)
[2022-10-31] MEDS: ASPIRIN 81 MG PO SCH (07:50)
[2022-10-31] MEDS: AMITRIPTYLINE HCL 25 MG TAB PO SCH ×2 (07:50→20:59)
[2022-10-31] MEDS: predniSONE 20 MG TAB PO SCH (07:50)
[2022-10-31] MEDS: ENOXAPARIN 40 MG/0.4 ML SYRINGE SQ SCH (07:51)
[2022-10-31] MEDS ORDERED: atenoloL 50 MG TAB PO SCH (09:00)
[2022-10-31] MEDS ORDERED: ENOXAPARIN 40 MG/0.4 ML SYRINGE SQ SCH (09:00)
--- NOTE | 2022-10-31 11:46 | P.CNPUL ---
History of Present Illness Consult date: 10/31/22 Requesting physician: Geovanny Hernadez Reason for consult: dyspnea, cough Chief complaint: Shortness of breath, cough, congestion History of present illness: This is a very pleasant 72-year-old female patient with a known history of diabetes mellitus, type II, hyperlipidemia, hypertension, anxiety, former smoker. She has a one to two-week history of increasing shortness of breath, cough and congestion. She felt as though she was coming down with a cold. More recently though she developed increasing shortness of breath and presented here to the ER yesterday for the same. O2 saturations 90% on room air. Chest x-ray revealed patchy bibasilar infiltrate/atelectasis. Pro-calcitonin was normal at 0.07. Lactic acid 1.3. White count 3.8. Hemoglobin 13.6. Platelets 165. Sodium 139. Potassium 3.7. Bicarb 22. BUN 7. Creatinine 0.35. Glucose 163. AST 40. ALT 34. Troponin negative times one. ProBNP 642. Influenza screen negative. RSV screen negative. COVID-19 screen negative. She is seen today in consultation on the regular medical floor. Currently sitting up at bedside. Awake and alert in no acute distress. She has a loose cough. No hemoptysis. Maintaining good O2 saturations in the 90s on 2 L/m per nasal cannula. She's been initiated on ceftriaxone and azithromycin. Prednisone at 40 mg daily. DuoNeb inhalations. Lovenox for DVT prophylaxis. Review of Systems REVIEW OF SYSTEMS: CONSTITUTIONAL: Denies any recent significant weight loss or weight gain. EYES: Denies change in vision. EARS, NOSE, MOUTH, THROAT: Denies headaches, denies sore throat. CARDIOVASCULAR: Denies chest pain, palpitations or syncopal episodes. RESPIRATORY: Positive for shortness of breath, cough, congestion no hemoptysis. GASTROINTESTINAL: Denies change in appetite, denies abdominal pain GENITOURINARY: Denies hematuria, denies infections. MUSKULOSKELETAL: Denies pain, denies swelling. INTEGUMENTARY: Denies rash, denies eczema. NEUROLOGICAL: Denies recent memory loss, no recent seizure activity. PSYCHIATRIC: Denies anxiety, denies depression. HEMATOLOGIC/LYMPHATIC: Denies anemia, denies enlarged lymph nodes. Past Medical History Past Medical History: Cancer, Diabetes Mellitus, GERD/Reflux, Hyperlipidemia, Hypertension, Osteoarthritis (OA) Additional Past Medical History / Comment(s): Type 2 diabetes with neuropathy. Basal cell skin cancer on her nose. 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 She has a known grade 2 cystocele and grade 1-2 rectocele. She used HRT for 14 years and this was discontinued in 2008. History of Any Multi-Drug Resistant Organisms: None Reported Past Surgical History: Breast Surgery, Hysterectomy, Tubal Ligation Additional Past Surgical History / Comment(s): LAVH with BSO in 1996. Facial cosmetic surgery. Basal cell skin cancer removed 2021. Cystoscopy 2018. Colonoscopy with upper endoscopy 2020(next colonoscpy 5yrs) Past Anesthesia/Blood Transfusion Reactions: No Reported Reaction Past Psychological History: Anxiety Smoking Status: Former smoker Past Alcohol Use History: Daily Past Drug Use History: None Reported - Past Family History Mother Family Medical History: Myocardial Infarction ([place]) Additional Family Medical History / Comment(s): Maternal aunt had breast cancer. Nephew had colon cancer. Father Family Medical History: Cancer Additional Family Medical History / Comment(s): Cancer of the esophagus. Sister(s) Family Medical History: Osteoarthritis (OA) Medications and Allergies Home Medications Medication Instructions Recorded Confirmed Type ALPRAZolam [Xanax] 0.25 mg PO DAILY PRN 04/19/18 10/30/22 History Amitriptyline HCl [Elavil] 25 mg PO BID@0900,0 04/19/18 10/30/22 History Atorvastatin [Lipitor] 40 mg PO HS@219904/19/18 10/30/22 History Cranberry Fruit Concentrate 4,500 mg PO DAILY@0900 04/19/18 10/30/22 History [Cranberry] Omega3/Dha/Epa/Fish Oil/Vit D3 1 cap PO HS@219904/19/18 10/30/22 History [Fish Oil-Vit D3 Softgel] Omeprazole 40 mg PO HS@219904/19/18 10/30/22 History atenoloL [Tenormin] 100 mg PO DAILY@0900 04/19/18 10/30/22 History metFORMIN HCL [Glucophage] 500 mg PO BID@0900,2200 04/19/18 10/30/22 History Cognium 1 tablet PO BID@0900,2200 06/20/19 10/30/22 History Cyanocobalamin (Vitamin B-12) 5,000 mcg PO DAILY@0900 06/20/19 10/30/22 History [Vitamin B-12] Multivit-Min/FA/Lycopen/Lutein 1 tab PO DAILY@0900 06/20/19 10/30/22 History [Centrum Silver Tablet] Nasal [place] 1 - 3 sprays EA NOSTRIL TID PRN 06/20/19 10/30/22 History Aspirin 81 mg PO DAILY@0900 07/23/20 10/30/22 History Biotin [Biotin Disolve] 5,000 mcg PO DAILY@1000 10/29/21 10/30/22 History Vitamin E 400 unit PO DAILY@99910/29/21 10/30/22 History Ascorbic Acid [Vitamin C] 500 mg PO DAILY@99910/30/22 10/30/22 History Atorvastatin [Lipitor] 20 mg PO HS@219910/30/22 10/30/22 History Cholecalciferol [Vitamin D3 (25 50 mcg PO DAILY@99910/30/22 10/30/22 History Mcg = 1000 Iu)] glipiZIDE XL [Glucotrol Xl] 5 mg PO DAILY@99910/30/22 10/30/22 History Allergies Allergy/AdvReac Type Severity Reaction Status Date / Time Sulfa (Sulfonamide Allergy Mild Unknown Verified 10/30/22 08:06 Antibiotics) Childhood amoxicillin Allergy Rash/Hives Verified 10/30/22 08:06 Physical Exam Vitals: Vital Signs Temp Pulse Pulse Resp BP Pulse Ox 10/31/22 08:13 80 10/31/22 08:03 80 10/31/22 08:00 76 18 10/31/22 07:40 98.5 F 76 18 189/91 98 10/31/22 04:24 76 10/31/22 04:12 71 10/31/22 03:47 97.9 F 73 16 160/91 96 10/30/22 23:39 80 10/30/22 23:28 78 10/30/22 20:09 80 10/30/22 20:00 16 10/30/22 19:57 79 10/30/22 19:40 97.8 F 75 16 180/85 97 10/30/22 15:46 80 10/30/22 15:39 96 10/30/22 15:36 78 10/30/22 14:00 18 10/30/22 13:02 98.5 F 85 16 192/92 97 Intake and Output 10/30/22 10/31/22 10/31/22 22:59 06:59 14:59 Intake Total 118 Balance 118 Intake: Oral 118 Other: # Voids 2 3 GENERAL EXAM: Alert, oriented very pleasant 72-year-old female, on 2 L nasal cannula, comfortable in no apparent distress. HEAD: Normocephalic. EYES: Normal reaction of pupils, equal size. NOSE: Clear with pink turbinates. THROAT: No erythema or exudates. NECK: No masses, no JVD. CHEST: No chest wall deformity. LUNGS: Equal air entry with bilateral scattered rhonchi. CVS: S1 and S2 normal with no audible murmur, regular rhythm. ABDOMEN: No hepatosplenomegaly, normal bowel sounds, no guarding or rigidity. SPINE: No scoliosis or deformity SKIN: No rashes CENTRAL NERVOUS SYSTEM: No focal deficits, tone is normal in all 4 extremities. EXTREMITIES: There is no peripheral edema. No clubbing, no cyanosis. Peripheral pulses are intact. Results - Laboratory Findings CBC and BMP: 10/30/22 00:21 10/30/22 00:21 PT/INR, D-dimer PT 10.4 sec (9.0-12.0) 10/30/22 00:21 INR 1.0 (<1.2) 10/30/22 00:21 Abnormal lab findings: Abnormal Labs 10/30/22 10/30/22 10/30/22 00:21 00:21 03:10 Creatinine 0.35 L Glucose 57 L POC Glucose (mg/dL) 64 L Plasma Lactic Acid Edilson 3.3 H* Calcium 8.2 L AST 40 H 10/30/22 10/30/22 10/30/22 03:20 07:20 14:42 Creatinine Glucose POC Glucose (mg/dL) 194 H Plasma Lactic Acid Edilson 3.1 H* 2.2 H* Calcium AST 10/30/22 10/30/22 10/31/22 17:38 22:32 06:22 Creatinine Glucose POC Glucose (mg/dL) 241 H 260 H 163 H Plasma Lactic Acid Edilson Calcium AST - Diagnostic Findings Chest x-ray: image reviewed Assessment and Plan Assessment: Acute hypoxemic respiratory failure secondary to acute tracheobronchitis. No clear evidence of pneumonia. Procalcitonin 0.07. Urinary tract infection recently documented at [place] per her urologist, untreated History of anxiety Diabetes mellitus, type II Hypertension Hyperlipidemia Osteoarthritis Former smoker Plan: The patient was seen and evaluated Chest x-ray, labs and medications reviewed Discontinue azithromycin Continue ceftriaxone for now Obtain a urinalysis Obtain a d-dimer Continue DuoNeb inhalations, prednisone Titrate down the FiO2 as tolerated Increase her activity as tolerated Probable discharge in the a.m. We will continue to follow and make further recommendations based on her clinical status I have personally seen and examined the patient, performed the documentation and the assessment and plan as written. Number of minutes spent on the visit: 20.
[2022-10-31 12:14] LABS: Glucose,Whole Blood 200 mg/dL (70-110)
[2022-10-31] MEDS: SODIUM CHLORIDE 0.9% 1,000 ML IV SCH (13:12)
[2022-10-31] MEDS ORDERED: FUROSEMIDE 10 MG/ML 2 ML VIAL IV ONE (14:36)
[2022-10-31] MEDS: methylPREDNISolone SOD SUCCI 125 MG/2 ML VIAL IV SCH ×2 (16:25→18:21)
[2022-10-31 17:12] LABS: Appearance,Urine Clear (Clear); Bilirubin,Urine Negative (Negative); Blood,Urine Negative (Negative); Color,Urine Light Yellow; Glucose,Urine (UA) 2+ (Negative); Ketones,Urine Negative (Negative); Leukocyte Esterase,Urine Negative (Negative); Nitrite,Urine Negative (Negative); PH, Urine 7.5 (5.0-8.0); Protein,Urine Trace (Negative); Specific Gravity,Urine 1.008 (1.001-1.035); Urobilinogen,Urine <2.0 mg/dL (<2.0)
[2022-10-31 17:23] LABS: Glucose,Whole Blood 302 mg/dL (70-110)
[2022-10-31] MEDS ORDERED: cloNIDine HCL 0.2 MG TAB PO STA (20:50)
[2022-10-31] MEDS: ATORVASTATIN 20 MG TAB PO SCH (20:59)
[2022-10-31 21:30] LABS: Glucose,Whole Blood 277 mg/dL (70-110)
--- NOTE | 2022-10-31 22:36 | PN ---
PROGRESS NOTE DATE OF SERVICE: 10/31/2022 SUBJECTIVE: This is a 72-year-old woman who was admitted with acute hypoxic respiratory failure, possibly secondary to asthmatic bronchitis and tracheobronchitis. Suspected right middle lobe pneumonia is being closely monitored. No chest pain. No palpitations. No fever. PAST MEDICAL HISTORY: Reviewed. PHYSICAL EXAMINATION: VITAL SIGNS: Pulse is 76, blood pressure 180/91, respirations 18. CHEST: Bilateral scattered rhonchi and crackles. Expiratory wheezing. ABDOMEN: Soft. NERVOUS SYSTEM: Nonfocal. LABORATORY DATA: Reviewed. ASSESSMENT: 1. Acute hypoxic respiratory failure secondary to asthmatic bronchitis exacerbation as well as right middle lobe pneumonia versus tracheobronchitis. 2. Possible chronic obstructive pulmonary disease acute exacerbation. 3. Diabetes mellitus, type 2. 4. Gastritis. 5. Hypertension. 6. Multiple medical issues. RECOMMENDATIONS AND DISCUSSION: Recommend to continue current medications. Continue symptomatic treatment. Otherwise, we will monitor the patient closely. Continue the bronchodilators, empiric antibiotics, steroids. BNP 642. See orders for further details. Procalcitonin is also normal. MMODL / IJN: [id number] /
[2022-11-01] MEDS: methylPREDNISolone SOD SUCCI 125 MG/2 ML VIAL IV SCH ×3 (00:21→12:35)
[2022-11-01 06:12] LABS: Glucose,Whole Blood 250 mg/dL (70-110)
[2022-11-01] MEDS: AZITHROMYCIN 500 MG TAB PO SCH (06:25)
[2022-11-01] MEDS: INSULIN ASPART (NovoLOG) 100 UNIT/ML VIAL SQ SCH ×4 (06:26→21:15)
[2022-11-01] MEDS: IPRATROPIUM-ALBUTEROL 3 ML NEB INHALATION SCH ×4 (07:52→19:52)
[2022-11-01] MEDS: atenoloL 50 MG TAB PO SCH (08:01)
[2022-11-01] MEDS: ASCORBIC ACID 500 MG TAB PO SCH (08:01)
[2022-11-01] MEDS: ASPIRIN 81 MG PO SCH (08:01)
[2022-11-01] MEDS: AMITRIPTYLINE HCL 25 MG TAB PO SCH ×2 (08:01→21:14)
[2022-11-01] MEDS: ENOXAPARIN 40 MG/0.4 ML SYRINGE SQ SCH (08:02)
[2022-11-01] MEDS ORDERED: amLODIPine 5 MG TAB PO SCH (09:00)
[2022-11-01 09:19] LABS: Basophils # (A) 0.01 X 10*3/uL (0.00-0.10); Basophils % (A) 0.2 %; Eosinophils # (A) 0 X 10*3/uL (0.04-0.35); Eosinophils % (A) 0 %; HCT 37.2 % (37.2-46.3); HGB 12.7 g/dL (12.0-15.0); Immature Grans, Automated 0.4 %; Lymphocytes # (A) 0.72 X 10*3/uL (0.90-5.00); MCHC 34.1 g/dL (32.0-37.0); MCV 96.6 fL (80.0-97.0); Mean Platelet Volume 10.1 fL (9.5-12.2); Monocytes % (A) 2.2 %; NRBC Per 100 WBC 0 /100 WBCS (0.0-0.0); Neutrophils # (A) 3.66 X 10*3/uL (1.80-7.70); Neutrophils % (A) 81.2 %; Platelet Count 182 X 10*3/uL (140-440); RBC 3.85 X 10*6/uL (4.10-5.20); WBC 4.51 X 10*3/uL (4.50-10.00)
--- NOTE | 2022-11-01 10:40 | P.PN ---
Subjective Progress Note Date: 11/01/22 This is a very pleasant 72-year-old female patient with a known history of diabetes mellitus, type II, hyperlipidemia, hypertension, anxiety, former smoker. She has a one to two-week history of increasing shortness of breath, cough and congestion. She felt as though she was coming down with a cold. More recently though she developed increasing shortness of breath and presented here to the ER yesterday for the same. O2 saturations 90% on room air. Chest x-ray revealed patchy bibasilar infiltrate/atelectasis. Pro-calcitonin was normal at 0.07. Lactic acid 1.3. White count 3.8. Hemoglobin 13.6. Platelets 165. Sodium 139. Potassium 3.7. Bicarb 22. BUN 7. Creatinine 0.35. Glucose 163. AST 40. ALT 34. Troponin negative times one. ProBNP 642. Influenza screen negative. RSV screen negative. COVID-19 screen negative. She is seen today in consultation on the regular medical floor. Currently sitting up at bedside. Awake and alert in no acute distress. She has a loose cough. No hemoptysis. Maintaining good O2 saturations in the 90s on 2 L/m per nasal cannula. She's been initiated on ceftriaxone and azithromycin. Prednisone at 40 mg daily. DuoNeb inhalations. Lovenox for DVT prophylaxis. The patient is seen today 11/01/2022 in follow-up on the regular medical floor. She is currently sitting up at the bedside. Awake and alert in no acute distress. Breathing a bit easier today compared to yesterday. Not quite back to her baseline. Maintaining good O2 saturations in the 90s on 2 L/m per nasal cannula. Afebrile. Somewhat hypertensive. Blood cultures are pending. White count 4.5. Hemoglobin 12.7. Platelets 182. Blood glucose 250. Urinalysis clean. She remains on DuoNeb inhalations, IV Solu-Medrol. Antibiotics in the form of ceftriaxone. Pro-calcitonin was 0.07. D-dimer 0.57. Objective - Vital Signs Vital signs: Vital Signs Temp 98 F 11/01/22 07:00 Pulse 80 11/01/22 08:03 Resp 18 11/01/22 07:00 BP 199/96 11/01/22 07:00 Pulse Ox 96 11/01/22 07:53 FiO2 Intake & Output 10/31/22 11/01/22 11/01/22 18:59 06:59 18:59 Intake Total 118 Balance 118 Intake: Oral 118 Other: # Voids 4 3 0 - Exam GENERAL EXAM: Alert, pleasant 72-year-old female, on 2 L nasal cannula, comfortable in no apparent distress. HEAD: Normocephalic. EYES: Normal reaction of pupils, equal size. NOSE: Clear with pink turbinates. THROAT: No erythema or exudates. NECK: No masses, no JVD. CHEST: No chest wall deformity. LUNGS: Equal air entry with few scattered rhonchi bilaterally. CVS: S1 and S2 normal with no audible murmur, regular rhythm. ABDOMEN: No hepatosplenomegaly, normal bowel sounds, no guarding or rigidity. SPINE: No scoliosis or deformity SKIN: No rashes CENTRAL NERVOUS SYSTEM: No focal deficits, tone is normal in all 4 extremities. EXTREMITIES: There is no peripheral edema. No clubbing, no cyanosis. Peripheral pulses are intact. - Labs CBC & Chem 7: 11/01/22 06:17 10/30/22 00:21 Labs: Abnormal Lab Results - Last 24 Hours (Table) 10/31/22 10/31/22 10/31/22 Range/Units 12:12 16:50 17:21 RBC (4.10-5.20) X 10*6/uL MCH (27.0-32.0) pg Lymphocytes # (0.90-5.00) X 10*3/uL Monocytes # (0.20-1.00) X 10*3/uL Eosinophils # (0.04-0.35) X 10*3/uL POC Glucose (mg/dL) 200 H 302 H (70-110) mg/dL Urine Protein Trace H (Negative) Urine Glucose (UA) 2+ H (Negative) 10/31/22 11/01/22 11/01/22 Range/Units 21:29 06:05 06:17 RBC 3.85 L (4.10-5.20) X 10*6/uL MCH 33.0 H (27.0-32.0) pg Lymphocytes # 0.72 L (0.90-5.00) X 10*3/uL Monocytes # 0.10 L (0.20-1.00) X 10*3/uL Eosinophils # 0 L (0.04-0.35) X 10*3/uL POC Glucose (mg/dL) 277 H 250 H (70-110) mg/dL Urine Protein (Negative) Urine Glucose (UA) (Negative) Microbiology - Last 24 Hours (Table) 10/30/22 03:35 Blood Culture - Preliminary Blood 10/30/22 03:20 Blood Culture - Preliminary Blood Assessment and Plan Assessment: Acute hypoxemic respiratory failure secondary to acute tracheobronchitis. No clear evidence of pneumonia. Procalcitonin 0.07. Urinary tract infection recently documented at [place] per her urologist, untreated. Urinalysis here clean. History of anxiety Diabetes mellitus, type II Hypertension Hyperlipidemia Osteoarthritis Former smoker Plan: The patient was seen and evaluated Labs and medications reviewed Discontinue ceftriaxone Short course of azithromycin for the tracheobronchitis Continue DuoNeb inhalations, Solu-Medrol Titrate down the FiO2 as tolerated Increase her activity as tolerated Not quite ready for discharge today We will continue to follow I have personally seen and examined the patient, performed the documentation and the assessment and plan as written. Number of minutes spent on the visit: 10.
[2022-11-01 10:43] LABS: African American GFR (CKD) 115.9 (60.0-200.0); Anion Gap 13.6 mmol/L (10.00-18.00); BUN/Creat Ratio 24.71 Ratio (12.00-20.00); Blood Urea Nitrogen 10.7 mg/dL (9.0-27.0); Calcium 8.3 mg/dL (8.7-10.3); Carbon Dioxide 25.4 mmol/L (20.0-27.5); Potassium 3.7 mmol/L (3.5-5.5)
[2022-11-01 11:52] LABS: Glucose,Whole Blood 279 mg/dL (70-110)
[2022-11-01] MEDS ORDERED: hydrALAZINE HCL 20 MG/ML 1 ML VIAL IVP PRN (12:16)
--- NOTE | 2022-11-01 15:04 | PN ---
PROGRESS NOTE DATE OF SERVICE: 11/01/2022 SUBJECTIVE: This 72-year-old woman was admitted with acute respiratory failure and COPD. She is on high-dose IV steroids. The patient's blood pressure is also elevated, not responding to Norvasc. At this time, the blood sugar is also elevated. The patient is on glipizide 2.5 mg p.o. b.i.d. PAST MEDICAL HISTORY: Reviewed. REVIEW OF SYSTEMS: 14-point review is negative except as mentioned earlier. CURRENT MEDICATIONS: Reviewed and include Solu-Medrol 60 IV q.6 hours. Rest of the medications and doses are reviewed. PHYSICAL EXAMINATION: VITAL SIGNS: Pulse is 69, blood pressure 199/96, respirations 18. HEENT: Conjunctivae normal. NECK: No jugular venous distention. CARDIOVASCULAR: S1 and S2 muffled. RESPIRATIONS: A few scattered rhonchi with expiratory wheezing. ABDOMEN: Soft, nontender. LEGS: No edema. NERVOUS SYSTEM: No focal deficits. LABORATORY DATA: Reviewed. ASSESSMENT: 1. Acute hypoxic respiratory failure, possibly secondary to asthmatic bronchitis exacerbation as well as possible right middle lobe pneumonia versus tracheobronchitis. 2. Possible chronic obstructive pulmonary disease, acute exacerbation. 3. Accelerated hypertension. 4. Diabetes mellitus type 2, uncontrolled, with hyperglycemia. 5. Gastritis. 6. Multiple medical issues. RECOMMENDATIONS: Recommended to continue current management and symptomatic treatment. I would recommend p.r.n. hydralazine. Increase the dose of Norvasc to 10 mg. The patient already received clonidine one-time dose and cut down the dose of IV steroids. Continue the rest of medications. The patient's procalcitonin was negative. I am going to continue to monitor and Dr. Carranza will follow tomorrow. MMODL / IJN: [id number] /
[2022-11-01] MEDS: methylPREDNISolone SOD SUCCI 40 MG/ML 1 ML VIAL IV SCH ×2 (17:54→23:21)
[2022-11-01 18:21] LABS: Glucose,Whole Blood 232 mg/dL (70-110)
[2022-11-01 20:40] LABS: Glucose,Whole Blood 161 mg/dL (70-110)
[2022-11-01] MEDS ORDERED: INSULIN DETEMIR (LEVEMIR) 100 UNIT/ML SYR SQ SCH (21:00)
[2022-11-01] MEDS: guaiFENesin 600 MG TABLET.ER PO SCH (21:13)
[2022-11-01] MEDS: glipiZIDE 5 MG TAB PO SCH (21:14)
[2022-11-01] MEDS: ATORVASTATIN 20 MG TAB PO SCH (21:14)
[2022-11-01] MEDS: PANTOPRAZOLE 40 MG TABLET PO SCH (21:14)
[2022-11-01] MEDS: BENZONATATE 100 MG CAP PO SCH (21:14)
[2022-11-02 02:39] VITALS: RESP 16
[2022-11-02 06:28] LABS: Glucose,Whole Blood 125 mg/dL (70-110)
[2022-11-02] MEDS: INSULIN ASPART (NovoLOG) 100 UNIT/ML VIAL SQ SCH (06:30)
[2022-11-02] MEDS: IPRATROPIUM-ALBUTEROL 3 ML NEB INHALATION SCH ×2 (08:06→11:30)
[2022-11-02 08:19] VITALS: BP 169/83; TEMP 98.4
[2022-11-02] MEDS: ENOXAPARIN 40 MG/0.4 ML SYRINGE SQ SCH (08:51)
[2022-11-02] MEDS: methylPREDNISolone SOD SUCCI 40 MG/ML 1 ML VIAL IV SCH (08:52)
[2022-11-02] MEDS: atenoloL 50 MG TAB PO SCH (08:52)
[2022-11-02] MEDS: AMITRIPTYLINE HCL 25 MG TAB PO SCH (08:53)
[2022-11-02] MEDS: glipiZIDE 5 MG TAB PO SCH (08:53)
[2022-11-02] MEDS: ASPIRIN 81 MG PO SCH (08:54)
[2022-11-02] MEDS: guaiFENesin 600 MG TABLET.ER PO SCH (08:54)
[2022-11-02] MEDS: ASCORBIC ACID 500 MG TAB PO SCH (08:54)
[2022-11-02] MEDS ORDERED: amLODIPine 10 MG TAB PO SCH (09:00)
[2022-11-02] MEDS ORDERED: AZITHROMYCIN 500 MG TAB PO SCH (09:00)
--- NOTE | 2022-11-02 11:32 | P.PN ---
Subjective Progress Note Date: 11/02/22 This is a very pleasant 72-year-old female patient with a known history of diabetes mellitus, type II, hyperlipidemia, hypertension, anxiety, former smoker. She has a one to two-week history of increasing shortness of breath, cough and congestion. She felt as though she was coming down with a cold. More recently though she developed increasing shortness of breath and presented here to the ER yesterday for the same. O2 saturations 90% on room air. Chest x-ray revealed patchy bibasilar infiltrate/atelectasis. Pro-calcitonin was normal at 0.07. Lactic acid 1.3. White count 3.8. Hemoglobin 13.6. Platelets 165. Sodium 139. Potassium 3.7. Bicarb 22. BUN 7. Creatinine 0.35. Glucose 163. AST 40. ALT 34. Troponin negative times one. ProBNP 642. Influenza screen negative. RSV screen negative. COVID-19 screen negative. She is seen today in consultation on the regular medical floor. Currently sitting up at bedside. Awake and alert in no acute distress. She has a loose cough. No hemoptysis. Maintaining good O2 saturations in the 90s on 2 L/m per nasal cannula. She's been initiated on ceftriaxone and azithromycin. Prednisone at 40 mg daily. DuoNeb inhalations. Lovenox for DVT prophylaxis. The patient is seen today 11/01/2022 in follow-up on the regular medical floor. She is currently sitting up at the bedside. Awake and alert in no acute distress. Breathing a bit easier today compared to yesterday. Not quite back to her baseline. Maintaining good O2 saturations in the 90s on 2 L/m per nasal cannula. Afebrile. Somewhat hypertensive. Blood cultures are pending. White count 4.5. Hemoglobin 12.7. Platelets 182. Blood glucose 250. Urinalysis clean. She remains on DuoNeb inhalations, IV Solu-Medrol. Antibiotics in the form of ceftriaxone. Pro-calcitonin was 0.07. D-dimer 0.57. Patient is seen today 11/02/2022 in follow-up on the regular medical floor. She is awake and alert in no acute distress. Feeling better today compared to yesterday. Maintaining O2 saturations in the 90s on room air. Afebrile. Hemodynamically stable. Blood cultures revealed no growth. Blood sugar 125. She is continued on DuoNeb inhalations, IV Cymetra. Antibiotics in the form of azithromycin. Lovenox for DVT prophylaxis. Objective - Vital Signs Vital signs: Vital Signs Temp 98.4 F 11/02/22 07:00 Pulse 72 11/02/22 08:18 Resp 16 11/02/22 07:00 BP 169/83 11/02/22 07:00 Pulse Ox 98 11/02/22 08:05 FiO2 21 11/02/22 08:05 Intake & Output 11/01/22 11/02/22 11/02/22 18:59 06:59 18:59 Intake Total 240 118 Balance 240 118 Intake: Oral 240 118 Other: # Voids 2 1 - Exam GENERAL EXAM: Alert, pleasant 72-year-old female, on room air, comfortable in no apparent distress. HEAD: Normocephalic. EYES: Normal reaction of pupils, equal size. NOSE: Clear with pink turbinates. THROAT: No erythema or exudates. NECK: No masses, no JVD. CHEST: No chest wall deformity. LUNGS: Equal air entry with few scattered rhonchi bilaterally. CVS: S1 and S2 normal with no audible murmur, regular rhythm. ABDOMEN: No hepatosplenomegaly, normal bowel sounds, no guarding or rigidity. SPINE: No scoliosis or deformity SKIN: No rashes CENTRAL NERVOUS SYSTEM: No focal deficits, tone is normal in all 4 extremities. EXTREMITIES: There is no peripheral edema. No clubbing, no cyanosis. Peripheral pulses are intact. - Labs CBC & Chem 7: 11/01/22 06:17 11/01/22 06:17 Labs: Abnormal Lab Results - Last 24 Hours (Table) 11/01/22 11/01/22 11/01/22 Range/Units 11:41 18:18 20:38 POC Glucose (mg/dL) 279 H 232 H 161 H (70-110) mg/dL 11/02/22 Range/Units 06:26 POC Glucose (mg/dL) 125 H (70-110) mg/dL Microbiology - Last 24 Hours (Table) 10/30/22 03:35 Blood Culture - Preliminary Blood 10/30/22 03:20 Blood Culture - Preliminary Blood Assessment and Plan Assessment: Acute hypoxemic respiratory failure secondary to acute tracheobronchitis. No clear evidence of pneumonia. Procalcitonin 0.07. Urinary tract infection recently documented at [facility] per her urologist, untreated. Urinalysis here clean. History of anxiety Diabetes mellitus, type II Hypertension Hyperlipidemia Osteoarthritis Former smoker Plan: The patient was seen and evaluated Labs and medications reviewed Stable and on room air Complete a short course of azithromycin for tracheobronchitis Complete a prednisone taper Cleared for discharge from the pulmonary standpoint Follow-up in our office in 1 week I have personally seen and examined the patient, performed the documentation and the assessment and plan as written. Number of minutes spent on the visit: 10.
[2022-11-02 11:39] VITALS: PULSE 80
[2022-11-02 12:38] LABS: Glucose,Whole Blood 200 mg/dL (70-110)
--- NOTE | 2022-11-02 23:08 | DS ---
DISCHARGE SUMMARY FINAL DIAGNOSES: 1. Possible asthmatic bronchitis/chronic obstructive pulmonary disease acute exacerbation with acute hypoxic respiratory failure with possible right middle lobe pneumonia present on admission. Consider gram-negative pneumonia. 2. Chronic obstructive pulmonary disease acute exacerbation. 3. Accelerated hypertension. 4. Diabetes mellitus type 2. 5. Gastritis. 6. Multiple medical issues. DISCHARGE DISPOSITION: The patient will be discharged in stable condition and guarded prognosis. HISTORY OF PRESENT ILLNESS: This is a 72-year-old woman with a past medical history of multiple medical problems, admitted with shortness of breath. The patient was thought to have possible COPD acute exacerbation, treated with bronchodilators, steroids. The patient improved significantly. Empiric antibiotics also used, but cultures are negative and the patient discharged home with the following list of medications, much improved. DISCHARGE INSTRUCTIONS: Diet, cardiac diet. Activity as tolerated. DISCHARGE MEDICATIONS: Resume the home medications. 1. DuoNeb q.i.d. and p.r.n. 2. Increase Glucotrol 5 mg p.o. b.i.d. 3. Mucinex. 4. Norvasc 10 mg daily. 5. Prednisone taper. 6. Symbicort 160/4.5 two puffs b.i.d. 7. Zithromax 500 mg daily for 3 more days. Follow up with Dr. Vu. Follow up with primary doctor, Dr. James and Dr. Vu. LINDA / JUANPABLON: [id number] /
[2022-11-03] MEDS ORDERED: predniSONE 20 MG TAB PO SCH (09:00)
== END 2022-11-02 15:05 | disposition home or self-care (01) | DRG 177 ==
LOC: EC 22:15 → 6NMEDSUR 10-30 03:01 → OBSVTOIN 10-31 11:58
PROVIDERS: ADMIT Hospitalist; ATTEND Hospitalist
DX: J15.6 Pneumonia due to other Gram-negative bacteria (principal); J96.01 Acute respiratory failure with hypoxia; J44.0 Chronic obstructive pulmonary disease with (acute) lower respiratory infection; J44.1 Chronic obstructive pulmonary disease with (acute) exacerbation; J20.9 Acute bronchitis, unspecified; F41.9 Anxiety disorder, unspecified; E11.65 Type 2 diabetes mellitus with hyperglycemia; M19.90 Unspecified osteoarthritis, unspecified site; E78.5 Hyperlipidemia, unspecified; I10 Essential (primary) hypertension; Z20.822 Contact with and (suspected) exposure to COVID-19; K29.70 Gastritis, unspecified, without bleeding; K21.9 Gastro-esophageal reflux disease without esophagitis; E11.42 Type 2 diabetes mellitus with diabetic polyneuropathy; Z88.2 Allergy status to sulfonamides; Z88.0 Allergy status to penicillin; Z85.828 Personal history of other malignant neoplasm of skin; Z79.899 Other long term (current) drug therapy; Z79.84 Long term (current) use of oral hypoglycemic drugs; Z79.82 Long term (current) use of aspirin; Z87.891 Personal history of nicotine dependence
CPT/HCPCS: 36415; 71046; 80048; 80053; 81003; 83605; 83880; 84145; 84484; 85025; 85379; 85610; 85730; 87040; 87449; 87636; 93005; 94640; 94667; 94760; 96365; 96366; 96368; 99285

== ENCOUNTER → 2023-06-29 | Outpatient (CLI) | payer MEDICARE, OTHER ==
[2023-06-29 13:25] VITALS: BP 151/84; PULSE 73; RESP 16; TEMP 98
--- NOTE | 2023-06-29 14:08 | P.HPOB ---
History of Present Illness H&P Date: 06/29/23 Chief Complaint: The patient is here for her routine gynecologic exam and ma mmogram. This is a 73-year-old with an LMP of 1996. The patient is status post LAVH with BSO for benign reasons. She continues to have some issues with urinary incontinence especially with coughing and sneezing. She occasionally notices the need to urinate again shortly after voiding. She usually does void a fair amount at that time as well. She saw Dr. Markie Narvaez on 10/15/2022 who wanted her to have a trial of vaginal estrogen cream and one to get records from her hysterectomy. She did not try the estrogen cream and was not happy with his office when it took 2 weeks for them to call to notify her that she had a UTI. She states she will be seeing a urologist, Dr. Noam Best, who is in [facility]. Review of Systems Her weight has been stable. She denies cardiac problems. Respiratory: Occasional cough. GI: Occasional difficulty swallowing at the beginning of the day. She has had a workup for this in the past. Past Medical History Past Medical History: Cancer, Diabetes Mellitus, GERD/Reflux, Hyperlipidemia, Hypertension, Osteoarthritis (OA) Additional Past Medical History / Comment(s): Type 2 diabetes with neuropathy. Basal cell skin cancer on her nose. 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 She has a known grade 2 cystocele and grade 1-2 rectocele. She used HRT for 14 years and this was discontinued in 2008. History of Any Multi-Drug Resistant Organisms: None Reported Past Surgical History: Breast Surgery, Hysterectomy, Tubal Ligation Additional Past Surgical History / Comment(s): LAVH with BSO in 1996. Facial cosmetic surgery. Basal cell skin cancer removed 2021. Cystoscopy 2018. Colonoscopy with upper endoscopy 2020(next colonoscpy 5yrs) Past Anesthesia/Blood Transfusion Reactions: No Reported Reaction Past Psychological History: Anxiety Smoking Status: Former smoker Past Alcohol Use History: Daily (2 glasses of wine per day.) Past Drug Use History: None Reported Additional History: She is been a since 2011 and is not sexually active. She is retired. - Past Family History Mother Family Medical History: Myocardial Infarction (OK) Additional Family Medical History / Comment(s): Maternal aunt had breast cancer. Nephew had colon cancer. Father Family Medical History: Cancer Additional Family Medical History / Comment(s): Cancer of the esophagus. Sister(s) Family Medical History: Osteoarthritis (OA) Medications and Allergies Home Medications Medication Instructions Recorded Confirmed Type ALPRAZolam [Xanax] 0.25 mg PO DAILY PRN 04/19/18 06/29/23 History Amitriptyline HCl [Elavil] 25 mg PO BID@0900,0 04/19/18 06/29/23 History Atorvastatin [Lipitor] 40 mg PO HS@219904/19/18 06/29/23 History Cranberry Fruit Concentrate 4,500 mg PO DAILY@0900 04/19/18 06/29/23 History [Cranberry] Omega3/Dha/Epa/Fish Oil/Vit D3 1 cap PO HS@219904/19/18 06/29/23 History [Fish Oil-Vit D3 Softgel] Omeprazole 40 mg PO HS@219904/19/18 06/29/23 History atenoloL [Tenormin] 100 mg PO DAILY@0900 04/19/18 06/29/23 History metFORMIN HCL [Glucophage] 500 mg PO BID@0900,2200 04/19/18 06/29/23 History Cognium 1 tablet PO BID@0900,2200 06/20/19 06/29/23 History Cyanocobalamin (Vitamin B-12) 5,000 mcg PO DAILY@0900 06/20/19 06/29/23 History [Vitamin B-12] Multivit-Min/FA/Lycopen/Lutein 1 tab PO DAILY@0900 06/20/19 06/29/23 History [Centrum Silver Tablet] Nasal [place] 1 - 3 sprays EA NOSTRIL TID PRN 06/20/19 06/29/23 History Aspirin 81 mg PO DAILY@0900 07/23/20 06/29/23 History Biotin [Biotin Disolve] 5,000 mcg PO DAILY@1000 10/29/21 06/29/23 History Vitamin E 400 unit PO DAILY@1000 10/29/21 06/29/23 History Ascorbic Acid [Vitamin C] 500 mg PO DAILY@1000 10/30/22 06/29/23 History Cholecalciferol [Vitamin D3 (25 50 mcg PO DAILY@1000 10/30/22 06/29/23 History Mcg = 1000 Iu)] amLODIPine [Norvasc] 10 mg PO DAILY #30 tab 11/02/22 06/29/23 Rx glipiZIDE [Glucotrol] 5 mg PO BID #60 tab 11/02/22 06/29/23 Rx Allergies Allergy/AdvReac Type Severity Reaction Status Date / Time Sulfa (Sulfonamide Allergy Mild Unknown Verified 06/29/23 12:59 Antibiotics) Childhood amoxicillin Allergy Rash/Hives Verified 06/29/23 12:59 Exam Vital Signs Temp Pulse Resp BP Pulse Ox 06/29/23 13:03 98.0 F 73 16 151/84 97 Intake and Output 06/28/23 06/29/23 06/29/23 22:59 06:59 14:59 Other: Weight 46.72 kg Height 5 feet 4 inches, weight 153 pounds, BMI 26.4.(The weight was inadvertently put in as 103 pounds) This is a well-developed well-nourished white female who is alert and oriented times 3 in no acute distress. HEENT: Within normal limits. NECK: Supple without mass or thyromegaly. CHEST AND LUNGS: Clear to auscultation. HEART: Regular rate and rhythm. BREASTS: Are without mass or discharge. The left nipple is inverted and this has been inverted for many years. AXILLARY EXAM: Negative for adenopathy. There is a right axillary lipoma measuring breast made to by 1.5 cm and this was seen on her previous mammographic exam. BACK: Negative for CVA tenderness. ABDOMEN: Soft, nontender, without palpable masses. PELVIC EXAM: External genitalia appears normal with mild atrophy. Vagina appe ars normal mild atrophy. There is a grade 1 cystocele noted. No other significant prolapse is noted. Vaginal cuff is well supported. There is mild urethral mobility with cough and Valsalva. No urinary leakage is demonstrated. Bimanual examination is negative for mass or tenderness. RECTAL EXAM: Rectovaginal exam is negative for mass or tenderness and is negative for occult blood. EXTREMITIES: Nontender. IMPRESSION: 1. 73-year-old menopausal female status post LAVH with BSO for benign reasons. 2. Small grade 1 cystocele with mixed urinary incontinence. PLAN: 1. Pap smears have been discontinued. 2. Self breast awareness was discussed with the patient. We have also discussed symptoms associated with inflammatory breast cancer. 3. Screening mammogram was done today. 4. Osteoporosis prevention was discussed. We will plan on repeating bone density testing in approximately 2027. She had a normal one on 10/23/2021. 5. She plans to see Dr. Noam Best, the urologist in [place]. This will be for her issues with urinary leakage. 6. She was advised to return in one year for her annual well woman exam.
== END ==
LOC: WWCWWP 12:08
PROVIDERS: ATTEND Obstetrics & Gynecology
DX: N39.46 Mixed incontinence (principal); N81.10 Cystocele, unspecified; M19.90 Unspecified osteoarthritis, unspecified site; K21.9 Gastro-esophageal reflux disease without esophagitis; I10 Essential (primary) hypertension; E11.40 Type 2 diabetes mellitus with diabetic neuropathy, unspecified; E78.5 Hyperlipidemia, unspecified; Z79.84 Long term (current) use of oral hypoglycemic drugs; Z78.0 Asymptomatic menopausal state; Z80.3 Family history of malignant neoplasm of breast; Z87.891 Personal history of nicotine dependence; Z88.2 Allergy status to sulfonamides; Z88.0 Allergy status to penicillin; Z90.722 Acquired absence of ovaries, bilateral; Z85.828 Personal history of other malignant neoplasm of skin; Z79.82 Long term (current) use of aspirin; Z79.899 Other long term (current) drug therapy

== ENCOUNTER → 2023-06-29 | Outpatient (CLI) | payer MEDICARE, OTHER ==
--- NOTE | 2023-06-30 19:55 | MM ---
Reason for Exam: Screening (asymptomatic). Last mammogram was performed 4 year(s) and 0 month(s) ago. Patient History: Menarche at age 9. Patient has no children. Left ovary removed at age 46. Right ovary removed at age 46. Hysterectomy at age 46. Postmenopausal. Estrogen for 10 years from age 46 until age 56. Benign Stereotactic Core Biopsy on the right side. Benign Excisional Biopsy on the right side. Benign Excisional Biopsy on the right side. Paternal aunt had breast cancer, age 60. Maternal aunt had breast cancer, age 50. Risk Values: Randa 5 year model risk: 3.2%. NCI Lifetime model risk: 6.9%. Prior Study Comparison: 04/19/2018 Bilateral Diagnostic Mammogram, [facility]. 06/20/2019 Bilateral Screening Mammogram, [facility]. 07/04/2019 Left Diagnostic Mammogram, [facility]. Tissue Density: The breast tissue is heterogeneously dense. This may lower the sensitivity of mammography. Findings: Analyzed By CAD. Diffuse bilateral punctate calcifications are redemonstrated. Benign bilateral vascular calcifications. Asymmetric density lateral right CC view is more defined. Further evaluation is recommended. Other areas of asymmetric density remain unchanged. Overall Assessment: Incomplete: need additional imaging evaluation, BI-RAD 0 Management: Special View Mammogram of the right breast. Diagnostic Breast Ultrasound of the right breast. Additional views to include spot 3-D CC, 3-D CC rolled, and 3-D ML views. Targeted right breast ultrasound if any persisting abnormality. [facility] will attempt to contact patient to return for supplemental views and ultrasound if indicated. Electronically signed and approved by: Cheo Bruno M.D. Radiologist
== END | disposition home or self-care (01) ==
LOC: RADMAMWWP 12:06
PROVIDERS: ATTEND Student in an Organized Health Care Education/Training Program
DX: Z12.31 Encounter for screening mammogram for malignant neoplasm of breast (principal); Z78.0 Asymptomatic menopausal state; Z80.3 Family history of malignant neoplasm of breast
CPT/HCPCS: 77063; 77067

== ENCOUNTER → 2023-07-07 | Outpatient (CLI) | payer MEDICARE, OTHER ==
--- NOTE | 2023-07-07 14:04 | MM ---
Reason for Exam: Additional evaluation requested from abnormal screening. Last screening mammogram was performed less than 1 month ago. Patient History: Menarche at age 9. Patient has no children. Left ovary removed at age 46. Right ovary removed at age 46. Hysterectomy at age 46. Postmenopausal. Estrogen for 10 years from age 46 until age 56. Benign Stereotactic Core Biopsy on the right side. Benign Excisional Biopsy on the right side. Benign Excisional Biopsy on the right side. Paternal aunt had breast cancer, age 60. Maternal aunt had breast cancer, age 50. Risk Values: Randa 5 year model risk: 3.2%. NCI Lifetime model risk: 6.9%. Prior Study Comparison: 05/20/2016 Screening Mammogram, [facility]. 07/28/2017 Screening Mammogram, [facility]. 04/19/2018 Bilateral Diagnostic Mammogram, [facility]. 04/19/2018 Right Diagnostic Ultrasound, [facility]. 04/25/2018 Left Diagnostic Ultrasound, [facility]. 06/20/2019 Bilateral Screening Mammogram, [facility]. 07/04/2019 Left Diagnostic Mammogram, [facility]. 06/29/2023 Bilateral MG 3D screening mammo w/cad, [facility]. Tissue Density: Right: The breast tissue is heterogeneously dense. This may lower the sensitivity of mammography. Findings: Analyzed By CAD. Area of distortion along the lateral aspect becomes less defined on spot cc view demonstrating an appearance similar to the 2016 exam. Heidi also becomes less defined on the CC rolled view. No corresponding abnormality on the mediolateral view. Findings most suggestive of scar related to prior excision. Overall Assessment: Benign, BI-RAD 2 Management: Screening Mammogram of both breasts in 1 year. See note below in regards to patient's increased 5 year Randa score. Results were given to the patient verbally at the time of exam. Patient should continue monthly self-breast exams. A clinical breast exam by your physician is recommended on an annual basis. This exam should not preclude additional follow-up of suspicious palpable abnormalities. Note on Randa scores and lifetime risk: 1. A Randa score greater than 3% is considered moderate risk. If this is the case, consider specialist referral to assess eligibility for a risk reducing agent. 2. If overall lifetime risk for the development of breast cancer is 20% or higher, the patient may qualify for future screening with alternating mammogram and breast MRI. Electronically signed and approved by: Cheo Bruno M.D. Radiologist
== END | disposition home or self-care (01) ==
LOC: RADMAMWWP 13:22
PROVIDERS: ATTEND Student in an Organized Health Care Education/Training Program
DX: R92.8 Other abnormal and inconclusive findings on diagnostic imaging of breast (principal); Z78.0 Asymptomatic menopausal state; Z90.710 Acquired absence of both cervix and uterus; Z80.3 Family history of malignant neoplasm of breast
CPT/HCPCS: 77065; G0279; 77061